=== PATIENT | male | born 2005 | race Caucasian/White ===

== ENCOUNTER 2024-06-20 22:10 | Inpatient (IN) | payer OTHER ==
[~2024-06-20] VITALS: Ht 185.4 cm; Wt 72.5 kg
[2024-06-20 22:40] VITALS: PULSE 87; RESP 23; O2SAT 91
[2024-06-20 23:17] LABS: Basophils # (auto) 0 10 ^3/uL (0-0.2); Eosinophils # (auto) 0 10 ^3/uL (0-0.8); Lymphocytes # (auto) 0.2 10 ^3/uL (0.4-5.4); Monocytes # (auto) 0.2 10 ^3/uL (0-1.3)
[2024-06-20 23:20] LABS: Basophils % (auto) 0.2 % (0.0-2.0); Hematocrit 29.4 % (41.0-53.0); Lymphocytes % (auto) 3.4 % (10.0-50.0); Mean Corpuscular Hemoglobin 47.2 pg (28.0-32.0); Mean Corpuscular Volume 99.2 fL (80.0-100.0); Neutrophils # (auto) 5.8 10 ^3/uL (1.6-8.6); Neutrophils % (auto) 93.4 % (37.0-80.0); Nucleated Red Blood Cells % 0.1 %; Red Blood Cells 2.96 10^6/uL (4.5-5.90); Red Cell Distribution Width 13.5 % (11.8-14.3); White Blood Cell 6.2 10^3/uL (4.4-10.8)
[2024-06-20 23:21] LABS: Chloride 99 mmol/L (98-107); Potassium 3.9 mmol/L (3.5-5.1); Sodium 133 mmol/L (136-145)
[2024-06-20 23:22] LABS: Anion Gap 17 (5-15); Calcium 9.3 mg/dL (8.7-10.4); Carbon Dioxide 17 mmol/L (20-30)
[2024-06-20 23:27] LABS: Blood Urea Nitrogen 14 mg/dL (9-23); Glucose 237 mg/dL (74-106); Mean Corpuscular Hgb Conc. 47.6 g/dL (32.0-36.0)
[2024-06-21] VITALS (12 sets, daily range): BP systolic 110–131; BP diastolic 62–78; PULSE 56–79; RESP 14–20; TEMP 97.8–98.4; O2SAT 91–100
[2024-06-21] MEDS: IOHEXOL 350 MG/ML 100ML IJ ONE (01:45)
[2024-06-21 03:19] LABS: Urine Bacteria FEW /hpf (None Seen); Urine Blood Negative /uL (Negative); Urine Clarity Clear (Clear); Urine Color Light-Yellow (Yellow); Urine Protein, UAD TRACE (Negative); Urine Urobilinogen Normal (Negative); Urine WBC <1 /hpf (0 - 3)
[2024-06-21 03:23] LABS: Urine Specific Gravity > 1.050 (1.001-1.035)
[2024-06-21 03:33] LABS: Amphetamine Screen, Urine Neg (NEGATIVE); Barbiturate Scree,Urine Neg (NEGATIVE); Benzodiazephine Screen, Urine Neg (NEGATIVE); Cocaine Screen, Urine Neg (NEGATIVE); Opiate Scree,Urine Neg (NEGATIVE)
[2024-06-21 03:34] LABS: Cannabinoid Screen, Urine Neg (NEGATIVE); Phencyclidine Screen, Urine Neg (NEGATIVE)
[2024-06-21 04:43] LABS: Rapid Influenza A Negative (Negative); Rapid Influenza B Negative (Negative)
[2024-06-21 04:59] LABS: COVID19 ANTIGEN SOFIA FIA NEGATIVE (NEGATIVE)
[2024-06-21] MEDS: SODIUM CHLORIDE 0.9% 1,000 ML IV ONE (05:14)
[2024-06-21] MEDS: AZITHROMYCIN 250 MG TAB PO ONE (05:20)
[2024-06-21] MEDS: VANCOMYCIN 1GM/200ML 200 ML IV ONE (05:20)
[2024-06-21] MEDS: CEFEPIME 2GM/50ML NS 50 ML IV ONE (05:20)
[2024-06-21] MEDS ORDERED: VANCOMYCIN PER PHARMACY 0 MG IV SCH (06:00)
[2024-06-21] MEDS ORDERED: ONDANSETRON HCL 4 MG/2 ML VIAL IV PRN (06:00)
[2024-06-21] MEDS ORDERED: MORPHINE SULFATE INJ 2 MG/ml SYRG IV PRN (06:00)
[2024-06-21] MEDS ORDERED: NITROGLYCERIN 0.4 MG SL TAB SL PRN (06:00)
[2024-06-21] MEDS ORDERED: ACETAMINOPHEN 325 MG TAB PO PRN (06:00)
[2024-06-21] MEDS ORDERED: DEXTROSE (50%) 50ML SYRG IV PRN (06:00)
[2024-06-21] MEDS ORDERED: HYDROcodone-ACET 5/325MG TAB PO PRN (06:00)
[2024-06-21] MEDS ORDERED: DOCUSATE SOD 100 MG CAP PO PRN (06:00)
[2024-06-21] MEDS: SODIUM CHLORIDE 0.9% 1,000 ML IV SCH (06:26)
[2024-06-21] MEDS: InsuLIN REG 1unit/0.01ml Soln (100units/ml) SC SCH (06:30)
[2024-06-21] MEDS: ACCU-CHEK COMFORT CURVE STRIP VI SCH (06:30)
[2024-06-21] MEDS ORDERED: guaiFENesin-DM 100/10mg/5ml SYR PO PRN (06:30)
[2024-06-21] MEDS: guaiFENesin-DM 100/10mg/5ml SYR PO ONE (06:36)
[2024-06-21 07:12] LABS: Alanine Aminotransferase 71 U/L (7-40); Albumin 4.2 g/dL (3.2-4.8); Alkaline Phosphatase 29 U/L (46-116); Aspartate Aminotransferase 37 U/L (13-40); BUN/Creatinine Ratio 12.9 (10.0-20.0); Bilirubin, Total 0.5 mg/dL (0.2-1.0); Blood Urea Nitrogen 13 mg/dL (9-23); Calcium 9.2 mg/dL (8.7-10.4); Chloride 102 mmol/L (98-107); Sodium 136 mmol/L (136-145); Total Protein 7.1 g/dL (5.7-8.2)
[2024-06-21 07:18] LABS: Glucose 116 mg/dL (74-106)
[2024-06-21 07:25] LABS: Anion Gap 10 (5-15); Carbon Dioxide 24 mmol/L (20-30)
[2024-06-21 08:04] LABS: Basophils # (auto) 0.1 10 ^3/uL (0-0.2); Eosinophils # (auto) 0 10 ^3/uL (0-0.8); Hemoglobin 14.6 g/dL (13.5-17.5); Lymphocytes # (auto) 0.6 10 ^3/uL (0.4-5.4); Lymphocytes % (auto) 7.4 % (10.0-50.0); Mean Corpuscular Hgb Conc. 36.4 g/dL (32.0-36.0); Mean Corpuscular Volume 93.4 fL (80.0-100.0); Monocytes # (auto) 0.6 10 ^3/uL (0-1.3); Monocytes % (auto) 7.5 % (0.0-12.0); Neutrophils # (auto) 6.8 10 ^3/uL (1.6-8.6); Neutrophils % (auto) 84.1 % (37.0-80.0); Nucleated Red Blood Cells % 0.1 %; Red Blood Cells 4.28 10^6/uL (4.5-5.90); Red Cell Distribution Width 13.3 % (11.8-14.3); White Blood Cell 8.1 10^3/uL (4.4-10.8)
[2024-06-21] MEDS: ACETYLCYSTEINE 20%(200MG/ML) SOL 4ML NEB SCH (11:57)
[2024-06-21] MEDS: IPRATROPIUM BROM 0.5 MG/2.5ML INH SOL NEB SCH (11:57)
[2024-06-21] MEDS: ALBUTEROL SULF 2.5 MG/0.5ML(0.5%) NEB SOLN NEB SCH (11:57)
[2024-06-21] MEDS: methylPREDNISolone SOD SUCC 125 MG/2 ML VL IV ONE (15:55)
[2024-06-21] MEDS: FAMOTIDINE 20 MG TAB PO ONE (15:55)
[2024-06-21] MEDS: cefTRIAXone 1GM/50ML D5W 50 ML IV ONE (15:55)
[2024-06-21] MEDS ORDERED: VANCOMYCIN 1GM/200ML 200 ML IV SCH (17:00)
[2024-06-21] MEDS: methylPREDNISolone SOD SUCC 125 MG/2 ML VL IV SCH (20:46)
[2024-06-22] VITALS (14 sets, daily range): BP systolic 117–129; BP diastolic 61–78; PULSE 55–88; RESP 14–20; TEMP 97.6–98.9; O2SAT 3–100
[2024-06-22] MEDS: AZITHROMYCIN 500MG/ 250ML 250 ML IV SCH (04:41)
[2024-06-22 07:18] LABS: Basophils # (auto) 0 10 ^3/uL (0-0.2); Basophils % (auto) 0.1 % (0.0-2.0); Eosinophils # (auto) 0 10 ^3/uL (0-0.8); Hematocrit 43.1 % (41.0-53.0); Hemoglobin 15.6 g/dL (13.5-17.5); Lymphocytes # (auto) 0.5 10 ^3/uL (0.4-5.4); Lymphocytes % (auto) 5.9 % (10.0-50.0); Mean Corpuscular Hemoglobin 34.8 pg (28.0-32.0); Mean Corpuscular Hgb Conc. 36.1 g/dL (32.0-36.0); Mean Corpuscular Volume 96.4 fL (80.0-100.0); Monocytes # (auto) 0.2 10 ^3/uL (0-1.3); Monocytes % (auto) 3.1 % (0.0-12.0); Neutrophils # (auto) 7.3 10 ^3/uL (1.6-8.6); Neutrophils % (auto) 90.9 % (37.0-80.0); Nucleated Red Blood Cells % 0.1 %; Red Blood Cells 4.47 10^6/uL (4.5-5.90); Red Cell Distribution Width 13.6 % (11.8-14.3)
[2024-06-22 07:21] LABS: Alanine Aminotransferase 73 U/L (7-40); Albumin 4.4 g/dL (3.2-4.8); Alkaline Phosphatase 33 U/L (46-116); Anion Gap 8 (5-15); Aspartate Aminotransferase 36 U/L (13-40); BUN/Creatinine Ratio 12.4 (10.0-20.0); Bilirubin, Total 0.5 mg/dL (0.2-1.0); Blood Urea Nitrogen 13 mg/dL (9-23); Calcium 9.7 mg/dL (8.7-10.4); Carbon Dioxide 25 mmol/L (20-30); Chloride 104 mmol/L (98-107); Glucose 153 mg/dL (74-106); Sodium 137 mmol/L (136-145); Total Protein 7.5 g/dL (5.7-8.2)
[2024-06-22] MEDS: cefTRIAXone 1GM/50ML D5W 50 ML IV SCH (11:02)
[2024-06-22] MEDS: FAMOTIDINE 20 MG TAB PO SCH (11:02)
[2024-06-22] MEDS ORDERED: PNEUMOCOCCAL VACC POLYS 25 MCG/0.5 ML VIAL IM SCH (12:00)
[2024-06-23] VITALS (14 sets, daily range): BP systolic 91–130; BP diastolic 54–90; PULSE 55–131; RESP 14–22; TEMP 97.6–98.8; O2SAT 91–100
[2024-06-23 06:16] LABS: Alanine Aminotransferase 66 U/L (7-40); Albumin 4.2 g/dL (3.2-4.8); Alkaline Phosphatase 31 U/L (46-116); Anion Gap 10 (5-15); Aspartate Aminotransferase 19 U/L (13-40); Bilirubin, Total 0.4 mg/dL (0.2-1.0); Blood Urea Nitrogen 15 mg/dL (9-23); Calcium 9.5 mg/dL (8.7-10.4); Carbon Dioxide 22 mmol/L (20-30); Chloride 105 mmol/L (98-107); Glucose 171 mg/dL (74-106); Potassium 4.1 mmol/L (3.5-5.1); Sodium 137 mmol/L (136-145)
[2024-06-23 06:17] LABS: Total Protein 7.1 g/dL (5.7-8.2)
[2024-06-23] MEDS: methylPREDNISolone SOD SUCC 40 MG/ML VL IV SCH (21:32)
[2024-06-24] VITALS (11 sets, daily range): BP systolic 101–127; BP diastolic 43–82; PULSE 71–95; RESP 14–18; TEMP 97.8; O2SAT 90–100
[2024-06-24 06:58] LABS: Alanine Aminotransferase 61 U/L (7-40); Albumin 4.3 g/dL (3.2-4.8); Alkaline Phosphatase 31 U/L (46-116); Anion Gap 11 (5-15); Aspartate Aminotransferase 13 U/L (13-40); BUN/Creatinine Ratio 14.6 (10.0-20.0); Bilirubin, Total 0.5 mg/dL (0.2-1.0); Blood Urea Nitrogen 14 mg/dL (9-23); Calcium 9.7 mg/dL (8.7-10.4); Carbon Dioxide 22 mmol/L (20-30); Chloride 101 mmol/L (98-107); Glucose 156 mg/dL (74-106); Potassium 4.5 mmol/L (3.5-5.1); Sodium 134 mmol/L (136-145); Total Protein 7.4 g/dL (5.7-8.2)
[2024-06-24] MEDS ORDERED: FLUT250M2 INH (10:55)
[2024-06-24] MEDS ORDERED: AZIT-74 PO (10:55)
[2024-06-24] MEDS ORDERED: PRED20TA2 PO (10:55)
[2024-06-24] MEDS ORDERED: ALBU2SYP25 PO (10:55)
[2024-06-24] MEDS ORDERED: CEFD300C2 PO (10:58)
== END 2024-06-24 13:49 | disposition home or self-care (01) | DRG 177 ==
LOC: ER 22:10 → TELE 06-21 06:07 → TELE-CENTR 06-21 11:29 → CENTRAL 06-21 15:50 → WEST WING 06-22 11:30
PROVIDERS: ADMIT Internal Medicine; ATTEND Internal Medicine
DX: J15.69 Pneumonia due to other Gram-negative bacteria (principal); J96.00 Acute respiratory failure, unspecified whether with hypoxia or hypercapnia; J45.901 Unspecified asthma with (acute) exacerbation; Z20.822 Contact with and (suspected) exposure to COVID-19; R74.01 Elevation of levels of liver transaminase levels; Z79.899 Other long term (current) drug therapy
CPT/HCPCS: 36415; 71275; 80048; 80053; 80202; 80307; 81001; 82962; 83036; 84484; 85025; 85379; 87278; 87426; 87804; 94640; 96365; 96368; G0378; J0692